=== PATIENT | male | born 1970 | race Caucasian/White ===

== ENCOUNTER 2017-02-04 01:21 | Emergency (ER) | payer SELFPAY ==
[~2017-02-04] VITALS: Ht 162.6 cm; Wt 72.7 kg
[2017-02-04 04:04] VITALS: BP 130/70
== END 2017-02-04 04:47 | disposition home or self-care (01) ==
LOC: EMS 01:23
DX: M25.511 Pain in right shoulder (principal); F43.9 Reaction to severe stress, unspecified
CPT/HCPCS: 99281